=== PATIENT | female | born 1990 | race Caucasian/White ===

== ENCOUNTER 2016-06-02 16:04 | Emergency (ER) | payer BC, OTHER ==
[2016-06-02] MEDS ORDERED: HumuLIN R (REGULAR) INSULIN (NovoLIN R) **100U/ML** PER UNIT As Ordered ONE (17:07)
[2016-06-02 18:14] LABS: VENOUS BASE EXCESS 1.6 (-2.0-2.0); VENOUS O2 SATURATION 51.5 % (60.0-80.0); VENOUS PARTIAL PRESSURE CO2 52.8 mmHg (38.0-50.0); VENOUS PARTIAL PRESSURE O2 29.2 mmHg (30.0-50.0); VENOUS STANDARD HCO3 24.6 MEQ/L; VENOUS TOTAL CO2 30.1 MEQ/L (24.0-28.0)
[2016-06-02 18:21] LABS: BASO % 0.4 % (0.0-1.0); EOS # 0.1 K/mm3 (0.0-0.50); EOS % 1.2 % (0.0-3.0); LARGE UNSTAINED CELL # 0.1 K/mm3 (0.0-0.4); LARGE UNSTAINED CELL % 0.7 % (0.0-4.0); LYMPH # 1.7 K/mm3 (1.5-6.5); LYMPH % 16.2 % (24.0-44.0); MEAN CORPUSCULAR HEMOGLOBIN 29.9 pg (27.0-33.0); MEAN CORPUSCULAR HGB CONC 33.4 g/dl (32.0-36.5); MEAN CORPUSCULAR VOLUME 89.7 fl (80.0-96.0); MONO # 0.6 K/mm3 (0.0-0.8); MONO % 6.1 % (0.0-5.0); NEUTROPHILS # 7.5 K/mm3 (1.8-7.7); NEUTROPHILS % 75.5 % (36.0-66.0); PLATELET COUNT, AUTOMATED 236 k/mm3 (150-450); RED CELL DISTRIBUTION WIDTH 13.2 % (11.5-14.5)
[2016-06-02 18:37] LABS: ANION GAP 9 MEQ/L (8-16); BLOOD UREA NITROGEN 11 MG/DL (7-18); CALCIUM LEVEL 8.8 MG/DL (8.5-10.1); CARBON DIOXIDE LEVEL 30 MEQ/L (21-32); CHLORIDE LEVEL 101 MEQ/L (98-107); CREATININE FOR GFR 0.67 MG/DL (0.55-1.02); GLOMERULAR FILTRATION RATE > 60.0 (>60); GLUCOSE, FASTING 189 MG/DL (70-105); POTASSIUM SERUM 3.6 MEQ/L (3.5-5.1); SODIUM LEVEL 140 MEQ/L (136-145)
[2016-06-02] MEDS ORDERED: ACETAMINOPHEN 325 MG TAB As Ordered ONE (19:17)
--- NOTE | 2016-06-02 19:24 | EDDOCDS ---
Physician Documentation [facility] Name: Sherita Arreola Age: 25 yrs Sex: Female : 1990 Arrival Date: 06/02/2016 Time: 16:04 Bed I5 / M5 Private MD: NO PRIMARY PHYSICIAN, . Disposition: 06/02/16 19:06 Discharged to Home/Self Care. Impression: Elevated blood glucose level, Diabetes mellitus due to underlying condition. - Condition is Stable. - Discharge Instructions: Type 2 Diabetes Mellitus, Adult, Diabetes Mellitus and Food. - Medication Reconciliation, Work Release Form - 3 day form. - Follow up: [facility]; When: Call to arrange an appointment; Reason: Wound/Symptom Recheck, Recheck today's complaints, Continuance of care, To establish care. - Problem is an ongoing problem. - Symptoms have improved. Historical: - Allergies: No known drug Allergies; - Home Meds: 1. Metformin 2000 mg Oral once daily - PMHx: PCOS; Diabetes - NIDDM: controlled; - PSHx: none; - Social history: Smoking status: Patient states was never smoker of tobacco. No barriers to communication noted, The patient speaks fluent [place], Speaks appropriately for age. - Family history: Not pertinent. - : The pt / caregiver states he / she is not on anticoagulants. Home medication list is obtained from the patient. - Exposure Risk Screening:: None identified. NURSING HOME AIDE: 06/02 19:23 unknown nn1 Vital Signs: 16:05 BP 153 / 80; Pulse 107; Resp 16; Temp 96.0; Pulse Ox 98% ; Weight 108.86 kg / 240 lbs; elp Height 5 ft. 3 in. (160.02 cm); 19:21 BP 138 / 65; Pulse 104; Resp 18; Temp 102.7(O); Pulse Ox 97% on R/A; Pain 3/10; nn1 16:05 Body Mass Index 42.51 (108.86 kg, 160.02 cm) elp MDM: 16:19 Fingerstick Blood Sugar Ordered. EDMS 16:30 Urine Dip ordered. ar2 16:36 IV Saline Lock ordered. ar2 16:36 NS 0.9% 1000 ml IV at bolus once ordered. ar2 16:36 Insulin Regular Human 5 units IVP once ordered. ar2 16:36 Accucheck hourly ordered. ar2 16:38 CBC with Diff Ordered. EDMS 16:38 MED Profile Ordered. EDMS 16:38 Hemoglobin A1c Ordered. EDMS 16:38 Venous Blood Gas (large pea green tube on ice) Ordered. EDMS 16:38 Acetone Level Ordered. EDMS 16:42 Financial registration complete. gb 16:45 [facility] Payment Agreement was scanned into [employer] and attached to record. gb 18:32 Fingerstick Blood Sugar Ordered. EDMS 18:47 Fingerstick Blood Sugar Reviewed. cc10 18:47 CBC with Diff Reviewed. cc10 18:47 MED Profile Reviewed. cc10 18:47 Venous Blood Gas (large pea green tube on ice) Reviewed. cc10 18:47 Fingerstick Blood Sugar Reviewed. cc10 18:47 Acetone Level Reviewed. cc10 18:54 Fingerstick Blood Sugar Ordered. EDMS 19:01 Hemoglobin A1c Reviewed. cc10 19:01 Fingerstick Blood Sugar Reviewed. cc10 19:15 Acetaminophen Tablet 650 mg PO once ordered. cc10 Point of Care Testing: Blood Glucose: 16:11 Blood Glucose: 333 mg/dL; mcp 18:26 Blood Glucose: 167 mg/dL; k Urine Dip: 16:40 pH: 7; ; Specific [place]: 1.010; Ketones: Trace; Glucose: Positive; Protein: Negative; ck1 Leukocytes: Negative; Nitrite: Negative ; Blood: Negative; Bilirubin: Negative ; Urobilinogen: Normal Ranges: Administered Medications: 17:26 Drug: NS 0.9% 1000 ml Route: IV; Rate: bolus; Site: right forearm; [facility] 18:49 Follow up: IV Status: Completed infusion; IV Intake: 1000ml ms18 17:31 Drug: Insulin Regular Human 5 units [insulin regular human 100 unit/mL injection jmk solution (0.05 mL)] {Co-Signature: ms18 (Eda Cordero RN).} Route: IVP; Site: left forearm; 19:20 Drug: Acetaminophen 650 mg [acetaminophen 325 mg tablet (2 tabs)] Route: PO; nn1 Signatures: Dispatcher [employer] EDMS Ayesha Ellison, Reg Reg gb Annette Rich RN RN ck1 Phil Potts PA-C PA-C ar2 Micky Angulo PA-C PA-C cc10 Helder Castrejon,RN RN nn1 Jaden Álvarez RN, Mallory RN ms18 Eda Cordero RN ms18 The chart was reviewed and I authenticate all verbal orders and agree with the evaluation and treatment provided.Attachments: 16:45 [facility] Payment Agreement gb MTDD
--- NOTE | 2016-06-02 19:24 | EDDOCDS ---
Nurse's Notes [facility] Name: Sherita Arreola Age: 25 yrs Sex: Female : 1990 Arrival Date: 06/02/2016 Time: 16:04 Bed I5 / M5 Private MD: NO PRIMARY PHYSICIAN, . Diagnosis: Elevated blood glucose level;Diabetes mellitus due to underlying condition Presentation: 06/02 16:06 Presenting complaint: Patient states: BS in mid 300's for the past couple of days. ck1 Reports fatigue, dizziness, GUEVARA. Adult Sepsis Screening: The patient does not have new or worsening altered mentation. Patient's respiratory rate is less than 22. Systolic blood pressure is greater than 100. Patient has a qSOFA score of 0- Negative Sepsis Screen. Suicide/Homicide risk assessment- the patient denies having any suicidal and/or homicidal ideations and does not present with any other emotional, behavioral or mental health complaints. Status: Patient is not a radiology services manager or dependent. Transition of care: patient was not received from another setting of care. 16:06 Acuity: SPIKE Level 3 ck1 16:06 Method Of Arrival: Walkin/Carried/Asstd ck1 Triage Assessment: 16:08 General: Appears in no apparent distress, comfortable, Behavior is appropriate for age, ck1 cooperative. Pain: Location: head Pain currently is 4 out of 10 on a pain scale. HIV screening NA for this visit Offered previously. Neurological: Reports weakness. Respiratory: Respiratory effort is unlabored, Respiratory pattern is regular, symmetrical. GI: No deficits noted. Derm: Skin is intact, is healthy with good turgor, Skin is pink, warm & dry. HOOP EXPANDER: 19:23 unknown nn1 Historical: - Allergies: No known drug Allergies; - Home Meds: 1. Metformin 2000 mg Oral once daily - PMHx: PCOS; Diabetes - NIDDM: controlled; - PSHx: none; - Social history: Smoking status: Patient states was never smoker of tobacco. No barriers to communication noted, The patient speaks fluent Turkish, Speaks appropriately for age. - Family history: Not pertinent. - : The pt / caregiver states he / she is not on anticoagulants. Home medication list is obtained from the patient. - Exposure Risk Screening:: None identified. Screenin:21 Screening information is obtained from the patient. Fall risk: No risks identified. nn1 Assistance ADL's: requires no assistance with activities of daily living. Abuse/DV Screen: The patient / caregiver reports he/she is: not in a situation that causes fear, pain or injury. Nutritional screening: No deficits noted. Advance Directives: There is no active DNR order. home support is adequate. Assessment: 17:26 General: Appears in no apparent distress. Cardiovascular: Capillary refill < 3 seconds jmk Clubbing of nail beds is absent Heart tones S1 S2 absent. Respiratory: No deficits noted. Airway is patent Respiratory effort is even, unlabored, Respiratory pattern is regular, Breath sounds are clear bilaterally. GI: Abdomen is obese. 19:20 General: Appears in no apparent distress, comfortable, Behavior is appropriate for age, nn1 cooperative. Neurological: Level of Consciousness is awake, alert, obeys commands. Respiratory: Airway is patent Respiratory effort is even, unlabored, Respiratory pattern is regular. Derm: Skin is pink, warm & dry. 19:21 General: Patient medicated for fever prior to discharge.. Pain: Location: head Pain nn1 currently is 3 out of 10 on a pain scale. Vital Signs: 16:05 BP 153 / 80; Pulse 107; Resp 16; Temp 96.0; Pulse Ox 98% ; Weight 108.86 kg; Height 5 elp ft. 3 in. (160.02 cm); 19:21 BP 138 / 65; Pulse 104; Resp 18; Temp 102.7(O); Pulse Ox 97% on R/A; Pain 3/10; nn1 16:05 Body Mass Index 42.51 (108.86 kg, 160.02 cm) [facility] Vitals: 16:05 Log In Time: June 02, 2016 at 16:03. [facility] ED Course: 16:04 Patient visited by Milka Altamirano PCA. elp 16:04 Patient moved to Waiting elp 16:05 NO PRIMARY PHYSICIAN, . is Private Physician. elp 16:05 Patient visited by Milka Altamirano PCA. elp 16:05 Patient moved to Pre RCE elp 16:07 Triage Initiated ck1 16:08 Patient moved to Triage 1 ck1 16:25 [facility] ar2 16:25 Chantal Segovia MD is Attending Physician. ar2 16:27 Patient visited by Phil Potts PA-C. ar2 16:33 Patient moved to I5 / M5 ck1 16:40 Patient visited by Annette Rich RN. ck1 16:45 [facility] Payment Agreement was scanned into [employer] and attached to record. gb 17:30 Missed attempts: 20 gauge X 2. jmk 17:30 Inserted saline lock: 20 gauge in right forearm. jmk 17:35 Patient visited by Eda Cordero RN. ms18 17:55 PHCP role handed off by Phil Potts PA-C cc10 17:55 Micky Angulo PA-C is PHCP. cc10 18:04 Patient visited by Eda Cordero RN. ms18 18:05 Acetone Level Sent. ms18 18:05 Venous Blood Gas (large pea green tube on ice) Sent. ms18 18:05 Hemoglobin A1c Sent. ms18 18:05 MED Profile Sent. ms18 18:05 CBC with Diff Sent. ms18 18:05 Inserted saline lock: 20 gauge in left antecubital area. ms18 18:49 Patient visited by Eda Cordero RN. ms18 18:54 Fingerstick Blood Sugar Sent. ajs 19:06 [facility] is Referral Physician. cc10 19:22 The patient / caregiver is instructed regarding the plan of care and ED course. nn1 19:22 No procedures done that require assistance. nn1 Administered Medications: 17:26 Drug: NS 0.9% 1000 ml Route: IV; Rate: bolus; Site: right forearm; k 18:49 Follow up: IV Status: Completed infusion; IV Intake: 1000ml ms18 17:31 Drug: Insulin Regular Human 5 units [insulin regular human 100 unit/mL injection k solution (0.05 mL)] {Co-Signature: ms18 (Eda Cordero RN).} Route: IVP; Site: left forearm; 19:20 Drug: Acetaminophen 650 mg [acetaminophen 325 mg tablet (2 tabs)] Route: PO; nn1 Point of Care Testing: Blood Glucose: 16:11 Blood Glucose: 333 mg/dL; mcp 18:26 Blood Glucose: 167 mg/dL; jmk Urine Dip: 16:40 pH: 7; ; Specific [place]: 1.010; Ketones: Trace; Glucose: Positive; Protein: Negative; ck1 Leukocytes: Negative; Nitrite: Negative ; Blood: Negative; Bilirubin: Negative ; Urobilinogen: Normal Ranges: Intake: 18:49 IV: 1000.00ml; Total: 1000.00ml. ms18 Order Results: Lab Order: Fingerstick Blood Sugar; SPEC'M 06/02/16 16:10 Test: BEDSIDE GLUCOSE; Value: 333; Range: 70-105; Abnormal: Above high normal; Units: MG/DL; Status: F Test Note: ; Doctor Notified Lab Order: CBC with Diff; SPEC'M 06/02/16 17:59 Test: WHITE BLOOD COUNT; Value: 10.0; Range: 4.0-10.0; Units: K/mm3; Status: F Test: RED BLOOD COUNT; Value: 5.14; Range: 4.00-5.40; Units: M/mm3; Status: F Test: HEMOGLOBIN; Value: 15.4; Range: 12.0-16.0; Units: g/dl; Status: F Test: HEMATOCRIT; Value: 46.1; Range: 36.0-47.0; Units: %; Status: F Test: MEAN CORPUSCULAR VOLUME; Value: 89.7; Range: 80.0-96.0; Units: fl; Status: F Test: MEAN CORPUSCULAR HEMOGLOBIN; Value: 29.9; Range: 27.0-33.0; Units: pg; Status: F Test: MEAN CORPUSCULAR HGB CONC; Value: 33.4; Range: 32.0-36.5; Units: g/dl; Status: F Test: RED CELL DISTRIBUTION WIDTH; Value: 13.2; Range: 11.5-14.5; Units: %; Status: F Test: PLATELET COUNT, AUTOMATED; Value: 236; Range: 150-450; Units: k/mm3; Status: F Test: NEUTROPHILS %; Value: 75.5; Range: 36.0-66.0; Abnormal: Above high normal; Units: %; Status: F Test: LYMPH %; Value: 16.2; Range: 24.0-44.0; Abnormal: Below low normal; Units: %; Status: F Test: MONO %; Value: 6.1; Range: 0.0-5.0; Abnormal: Above high normal; Units: %; Status: F Test: EOS %; Value: 1.2; Range: 0.0-3.0; Units: %; Status: F Test: BASO %; Value: 0.4; Range: 0.0-1.0; Units: %; Status: F Test: LARGE UNSTAINED CELL %; Value: 0.7; Range: 0.0-4.0; Units: %; Status: F Test: NEUTROPHILS #; Value: 7.5; Range: 1.8-7.7; Units: K/mm3; Status: F Test: LYMPH #; Value: 1.7; Range: 1.5-6.5; Units: K/mm3; Status: F Test: MONO #; Value: 0.6; Range: 0.0-0.8; Units: K/mm3; Status: F Test: EOS #; Value: 0.1; Range: 0.0-0.50; Units: K/mm3; Status: F Test: BASO #; Value: 0.0; Range: 0.0-0.2; Units: K/mm3; Status: F Test: LARGE UNSTAINED CELL #; Value: 0.1; Range: 0.0-0.4; Units: K/mm3; Status: F Lab Order: [facility]; [facility] 06/02/16 17:59 Test: GLUCOSE, FASTING; Value: 189; Range: 70-105; Abnormal: Above high normal; Units: MG/DL; Status: F Test: BLOOD UREA NITROGEN; Value: 11; Range: 7-18; Units: MG/DL; Status: F Test: CREATININE FOR GFR; Value: 0.67; Range: 0.55-1.02; Units: MG/DL; Status: F Test: GLOMERULAR FILTRATION RATE; Value: > 60.0; Range: >60; Status: F Test: SODIUM LEVEL; Value: 140; Range: 136-145; Units: MEQ/L; Status: F Test: POTASSIUM SERUM; Value: 3.6; Range: 3.5-5.1; Units: MEQ/L; Status: F Test: CHLORIDE LEVEL; Value: 101; Range: 98-107; Units: MEQ/L; Status: F Test: CARBON DIOXIDE LEVEL; Value: 30; Range: 21-32; Units: MEQ/L; Status: F Test: ANION GAP; Value: 9; Range: 8-16; Units: MEQ/L; Status: F Test: CALCIUM LEVEL; Value: 8.8; Range: 8.5-10.1; Units: MG/DL; Status: F Test Note: ; Units are mL/min/1.73 m2 Chronic Kidney Disease Staging per NKF: Stage I & II GFR >=60 Normal to Mildly Decreased Stage III GFR 30-59 Moderately Decreased Stage IV GFR 15-29 Severely Decreased Stage V GFR <15 Very Little GFR Left ESRD GFR <15 on GAS LEAK INSPECTOR HELPER Lab Order: Hemoglobin A1c; [facility] 06/02/16 17:59 Test: HEMOGLOBIN A1c; Value: 10.6; Range: 4.5-6.2; Abnormal: Above high normal; Units: %; Status: F Test: ESTIMATED AVERAGE GLUCOSE; Value: 258; Range: 60-110; Abnormal: Above high normal; Units: MG/DL; Status: F Lab Order: Venous Blood Gas (large pea green tube on ice); [facility] 06/02/16 17:59 Test: VENOUS PH; Value: 7.349; Range: 7.330-7.430; Units: UNITS; Status: F Test: VENOUS PARTIAL PRESSURE CO2; Value: 52.8; Range: 38.0-50.0; Abnormal: Above high normal; Units: mmHg; Status: F Test: VENOUS PARTIAL PRESSURE O2; Value: 29.2; Range: 30.0-50.0; Abnormal: Below low normal; Units: mmHg; Status: F Test: VENOUS TOTAL CO2; Value: 30.1; Range: 24.0-28.0; Abnormal: Above high normal; Units: MEQ/L; Status: F Test: VENOUS HCO3; Value: 28.4; Range: 23.0-27.0; Abnormal: Above high normal; Units: MEQ/L; Status: F Test: VENOUS BASE EXCESS; Value: 1.6; Range: -2.0-2.0; Status: F Test: VENOUS STANDARD HCO3; Value: 24.6; Units: MEQ/L; Status: F Test: VENOUS O2 SATURATION; Value: 51.5; Range: 60.0-80.0; Abnormal: Below low normal; Units: %; Status: F Lab Order: Acetone Level; [facility] 06/02/16 17:59 Test: ACETONE/KETONE; Value: 1.10; Range: <2.81; Units: MG/DL; Status: F Lab Order: Fingerstick Blood Sugar; SPEC'M 06/02/16 18:24 Test: BEDSIDE GLUCOSE; Value: 167; Range: 70-105; Abnormal: Above high normal; Units: MG/DL; Status: F Lab Order: Fingerstick Blood Sugar; SPEC'M 06/02/16 18:47 Test: BEDSIDE GLUCOSE; Value: 177; Range: 70-105; Abnormal: Above high normal; Units: MG/DL; Status: F Outcome: 19:06 Discharge ordered by Provider. cc10 19:22 Discharge Assessment: Patient awake, alert and oriented x 3. No cognitive and/or nn1 functional deficits noted. Patient verbalized understanding of disposition instructions. patient administered narcotics - no. 19:22 The following High Risk Discharge criteria are identified: None. Discharged to home nn1 ambulatory. Condition: stable. Work note provided to patient. No special radiology studies were completed. Property :Personal belongings accompany Pt. 19:23 Patient left the ED. nn1 Signatures: Jaden Álvarez,RN RN Alida Coronado RN VASHTI mcp Ayesha Ellison, Reg Reg Annette BowenRN RN ck1 Phil Potts, PA-C PA-C ar2 Janis Luevano Erin, PIERCE C[employer] STAIN MIXER elp Micky Angulo, PA-C PA-C cc10 Eda Cordero RN RN ms18 Helder Castrejon RN RN nn1 Eda Cordero RN ms18 MTDD
--- NOTE | 2016-06-04 20:24 | EDDOCDS ---
Physician Documentation [facility] [place] Name: Sherita Arreola Age: 25 yrs Sex: Female : 1990 Arrival Date: 06/02/2016 Time: 16:04 Bed I5 / M5 Private MD: NO PRIMARY PHYSICIAN, . Disposition: 06/02/16 19:06 Discharged to Home/Self Care. Impression: Elevated blood glucose level, Diabetes mellitus due to underlying condition. - Condition is Stable. - Discharge Instructions: Type 2 Diabetes Mellitus, Adult, Diabetes Mellitus and Food. - Medication Reconciliation, Work Release Form - 3 day form. - Follow up: [facility]; When: Call to arrange an appointment; Reason: Wound/Symptom Recheck, Recheck today's complaints, Continuance of care, To establish care. - Problem is an ongoing problem. - Symptoms have improved. Historical: - Allergies: No known drug Allergies; - Home Meds: 1. Metformin 2000 mg Oral once daily - PMHx: PCOS; Diabetes - NIDDM: controlled; - PSHx: none; - Social history: Smoking status: Patient states was never smoker of tobacco. No barriers to communication noted, The patient speaks fluent Luxembourgish, Speaks appropriately for age. - Family history: Not pertinent. - : The pt / caregiver states he / she is not on anticoagulants. Home medication list is obtained from the patient. - Exposure Risk Screening:: None identified. ZIGZAG APPLIQUER: 06/02 19:23 unknown nn1 Vital Signs: 16:05 BP 153 / 80; Pulse 107; Resp 16; Temp 96.0; Pulse Ox 98% ; Weight 108.86 kg / 240 lbs; elp Height 5 ft. 3 in. (160.02 cm); 19:21 BP 138 / 65; Pulse 104; Resp 18; Temp 102.7(O); Pulse Ox 97% on R/A; Pain 3/10; nn1 16:05 Body Mass Index 42.51 (108.86 kg, 160.02 cm) elp MDM: 16:19 Fingerstick Blood Sugar Ordered. EDMS 16:30 Urine Dip ordered. ar2 16:36 IV Saline Lock ordered. ar2 16:36 NS 0.9% 1000 ml IV at bolus once ordered. ar2 16:36 Insulin Regular Human 5 units IVP once ordered. ar2 16:36 Accucheck hourly ordered. ar2 16:38 CBC with Diff Ordered. EDMS 16:38 MED Profile Ordered. EDMS 16:38 Hemoglobin A1c Ordered. EDMS 16:38 Venous Blood Gas (large pea green tube on ice) Ordered. EDMS 16:38 Acetone Level Ordered. EDMS 16:42 Financial registration complete. gb 16:45 [facility] Payment Agreement was scanned into [employer] and attached to record. gb 18:32 Fingerstick Blood Sugar Ordered. EDMS 18:47 Fingerstick Blood Sugar Reviewed. cc10 18:47 CBC with Diff Reviewed. cc10 18:47 MED Profile Reviewed. cc10 18:47 Venous Blood Gas (large pea green tube on ice) Reviewed. cc10 18:47 Fingerstick Blood Sugar Reviewed. cc10 18:47 Acetone Level Reviewed. cc10 18:54 Fingerstick Blood Sugar Ordered. EDMS 19:01 Hemoglobin A1c Reviewed. cc10 19:01 Fingerstick Blood Sugar Reviewed. cc10 19:15 Acetaminophen Tablet 650 mg PO once ordered. cc 06/03 18:33 T-Sheet-- Draft Copy was scanned into [employer] and attached to record. [facility] Point of Care Testing: Blood Glucose: 06/02 16:11 Blood Glucose: 333 mg/dL; mcp 18:26 Blood Glucose: 167 mg/dL; k Urine Dip: 16:40 pH: 7; ; Specific [place]: 1.010; Ketones: Trace; Glucose: Positive; Protein: Negative; ck1 Leukocytes: Negative; Nitrite: Negative ; Blood: Negative; Bilirubin: Negative ; Urobilinogen: Normal Ranges: Administered Medications: 17:26 Drug: NS 0.9% 1000 ml Route: IV; Rate: bolus; Site: right forearm; [facility] 18:49 Follow up: IV Status: Completed infusion; IV Intake: 1000ml ms18 17:31 Drug: Insulin Regular Human 5 units [insulin regular human 100 unit/mL injection k solution (0.05 mL)] {Co-Signature: ms18 (Eda Cordero RN).} Route: IVP; Site: left forearm; 19:20 Drug: Acetaminophen 650 mg [acetaminophen 325 mg tablet (2 tabs)] Route: PO; nn1 Signatures: Dispatcher [employer] EDMS Ayesha Ellison, Reg Reg Annette BowenRN RN ck1 Phil Potts PA-C PA-C ar2 Micky Angulo PA-C PA-C cc10 Helder CastrejonRN RN nn1 Darline Bañuelos Jean RN jmk Smith, Mallory RN ms18 Eda Cordero RN ms18 The chart was reviewed and I authenticate all verbal orders and agree with the evaluation and treatment provided.Attachments: 16:45 [facility] Payment Agreement gb 06/03 18:33 T-Sheet-- Draft Copy klr Chart Complete MTDD
--- NOTE | 2016-06-04 20:24 | EDDOCDS ---
Nurse's Notes [facility] Name: Sherita Arreola Age: 25 yrs Sex: Female : 1990 Arrival Date: 06/02/2016 Time: 16:04 Bed I5 / M5 Private MD: NO PRIMARY PHYSICIAN, . Diagnosis: Elevated blood glucose level;Diabetes mellitus due to underlying condition Presentation: 06/02 16:06 Presenting complaint: Patient states: BS in mid 300's for the past couple of days. ck1 Reports fatigue, dizziness, GUEVARA. Adult Sepsis Screening: The patient does not have new or worsening altered mentation. Patient's respiratory rate is less than 22. Systolic blood pressure is greater than 100. Patient has a qSOFA score of 0- Negative Sepsis Screen. Suicide/Homicide risk assessment- the patient denies having any suicidal and/or homicidal ideations and does not present with any other emotional, behavioral or mental health complaints. Status: Patient is not a special services coordinator or dependent. Transition of care: patient was not received from another setting of care. 16:06 Acuity: SPIKE Level 3 ck1 16:06 Method Of Arrival: Walkin/Carried/Asstd ck1 Triage Assessment: 16:08 General: Appears in no apparent distress, comfortable, Behavior is appropriate for age, ck1 cooperative. Pain: Location: head Pain currently is 4 out of 10 on a pain scale. HIV screening NA for this visit Offered previously. Neurological: Reports weakness. Respiratory: Respiratory effort is unlabored, Respiratory pattern is regular, symmetrical. GI: No deficits noted. Derm: Skin is intact, is healthy with good turgor, Skin is pink, warm & dry. OR FIRST ASSIST REGISTERED NURSE: 19:23 unknown nn1 Historical: - Allergies: No known drug Allergies; - Home Meds: 1. Metformin 2000 mg Oral once daily - PMHx: PCOS; Diabetes - NIDDM: controlled; - PSHx: none; - Social history: Smoking status: Patient states was never smoker of tobacco. No barriers to communication noted, The patient speaks fluent Taiwanese, Speaks appropriately for age. - Family history: Not pertinent. - : The pt / caregiver states he / she is not on anticoagulants. Home medication list is obtained from the patient. - Exposure Risk Screening:: None identified. Screenin:21 Screening information is obtained from the patient. Fall risk: No risks identified. nn1 Assistance ADL's: requires no assistance with activities of daily living. Abuse/DV Screen: The patient / caregiver reports he/she is: not in a situation that causes fear, pain or injury. Nutritional screening: No deficits noted. Advance Directives: There is no active DNR order. home support is adequate. Assessment: 17:26 General: Appears in no apparent distress. Cardiovascular: Capillary refill < 3 seconds jmk Clubbing of nail beds is absent Heart tones S1 S2 absent. Respiratory: No deficits noted. Airway is patent Respiratory effort is even, unlabored, Respiratory pattern is regular, Breath sounds are clear bilaterally. GI: Abdomen is obese. 19:20 General: Appears in no apparent distress, comfortable, Behavior is appropriate for age, nn1 cooperative. Neurological: Level of Consciousness is awake, alert, obeys commands. Respiratory: Airway is patent Respiratory effort is even, unlabored, Respiratory pattern is regular. Derm: Skin is pink, warm & dry. 19:21 General: Patient medicated for fever prior to discharge.. Pain: Location: head Pain nn1 currently is 3 out of 10 on a pain scale. Vital Signs: 16:05 BP 153 / 80; Pulse 107; Resp 16; Temp 96.0; Pulse Ox 98% ; Weight 108.86 kg; Height 5 elp ft. 3 in. (160.02 cm); 19:21 BP 138 / 65; Pulse 104; Resp 18; Temp 102.7(O); Pulse Ox 97% on R/A; Pain 3/10; nn1 16:05 Body Mass Index 42.51 (108.86 kg, 160.02 cm) [facility] Vitals: 16:05 Log In Time: June 02, 2016 at 16:03. [facility] ED Course: 16:04 Patient visited by Milka Altamirano PCA. elp 16:04 Patient moved to Waiting elp 16:05 NO PRIMARY PHYSICIAN, . is Private Physician. elp 16:05 Patient visited by Milka Altamirano PCA. elp 16:05 Patient moved to Pre RCE elp 16:07 Triage Initiated ck1 16:08 Patient moved to Triage 1 ck1 16:25 [facility] ar2 16:25 Chantal Segovia MD is Attending Physician. ar2 16:27 Patient visited by Phil Potts PA-C. ar2 16:33 Patient moved to I5 / M5 ck1 16:40 Patient visited by Annette Rihc RN. ck1 16:45 [facility] Payment Agreement was scanned into webme and attached to record. gb 17:30 Missed attempts: 20 gauge X 2. jmk 17:30 Inserted saline lock: 20 gauge in right forearm. jmk 17:35 Patient visited by Eda Cordero RN. ms18 17:55 PHCP role handed off by Phil Potts PA-C cc10 17:55 Micky Angulo PA-C is PHCP. cc10 18:04 Patient visited by Eda Cordero RN. ms18 18:05 Acetone Level Sent. ms18 18:05 Venous Blood Gas (large pea green tube on ice) Sent. ms18 18:05 Hemoglobin A1c Sent. ms18 18:05 MED Profile Sent. ms18 18:05 CBC with Diff Sent. ms18 18:05 Inserted saline lock: 20 gauge in left antecubital area. ms18 18:49 Patient visited by Eda Cordero RN. ms18 18:54 Fingerstick Blood Sugar Sent. ajs 19:06 [facility] is Referral Physician. cc10 19:22 The patient / caregiver is instructed regarding the plan of care and ED course. nn1 19:22 No procedures done that require assistance. nn1 06/03 18:33 T-Sheet-- Draft Copy was scanned into webme and attached to record. klr Administered Medications: 06/02 17:26 Drug: NS 0.9% 1000 ml Route: IV; Rate: bolus; Site: right forearm; jmk 18:49 Follow up: IV Status: Completed infusion; IV Intake: 1000ml ms18 17:31 Drug: Insulin Regular Human 5 units [insulin regular human 100 unit/mL injection raheem solution (0.05 mL)] {Co-Signature: ms18 (Eda Cordero RN).} Route: IVP; Site: left forearm; 19:20 Drug: Acetaminophen 650 mg [acetaminophen 325 mg tablet (2 tabs)] Route: PO; nn1 Point of Care Testing: Blood Glucose: 16:11 Blood Glucose: 333 mg/dL; mcp 18:26 Blood Glucose: 167 mg/dL; jmk Urine Dip: 16:40 pH: 7; ; Specific [place]: 1.010; Ketones: Trace; Glucose: Positive; Protein: Negative; ck1 Leukocytes: Negative; Nitrite: Negative ; Blood: Negative; Bilirubin: Negative ; Urobilinogen: Normal Ranges: Intake: 18:49 IV: 1000.00ml; Total: 1000.00ml. ms18 Order Results: Lab Order: Fingerstick Blood Sugar; SPEC'M 06/02/16 16:10 Test: BEDSIDE GLUCOSE; Value: 333; Range: 70-105; Abnormal: Above high normal; Units: MG/DL; Status: F Test Note: ; Doctor Notified Lab Order: CBC with Diff; SPEC'M 06/02/16 17:59 Test: WHITE BLOOD COUNT; Value: 10.0; Range: 4.0-10.0; Units: K/mm3; Status: F Test: RED BLOOD COUNT; Value: 5.14; Range: 4.00-5.40; Units: M/mm3; Status: F Test: HEMOGLOBIN; Value: 15.4; Range: 12.0-16.0; Units: g/dl; Status: F Test: HEMATOCRIT; Value: 46.1; Range: 36.0-47.0; Units: %; Status: F Test: MEAN CORPUSCULAR VOLUME; Value: 89.7; Range: 80.0-96.0; Units: fl; Status: F Test: MEAN CORPUSCULAR HEMOGLOBIN; Value: 29.9; Range: 27.0-33.0; Units: pg; Status: F Test: MEAN CORPUSCULAR HGB CONC; Value: 33.4; Range: 32.0-36.5; Units: g/dl; Status: F Test: RED CELL DISTRIBUTION WIDTH; Value: 13.2; Range: 11.5-14.5; Units: %; Status: F Test: PLATELET COUNT, AUTOMATED; Value: 236; Range: 150-450; Units: k/mm3; Status: F Test: NEUTROPHILS %; Value: 75.5; Range: 36.0-66.0; Abnormal: Above high normal; Units: %; Status: F Test: LYMPH %; Value: 16.2; Range: 24.0-44.0; Abnormal: Below low normal; Units: %; Status: F Test: MONO %; Value: 6.1; Range: 0.0-5.0; Abnormal: Above high normal; Units: %; Status: F Test: EOS %; Value: 1.2; Range: 0.0-3.0; Units: %; Status: F Test: BASO %; Value: 0.4; Range: 0.0-1.0; Units: %; Status: F Test: LARGE UNSTAINED CELL %; Value: 0.7; Range: 0.0-4.0; Units: %; Status: F Test: NEUTROPHILS #; Value: 7.5; Range: 1.8-7.7; Units: K/mm3; Status: F Test: LYMPH #; Value: 1.7; Range: 1.5-6.5; Units: K/mm3; Status: F Test: MONO #; Value: 0.6; Range: 0.0-0.8; Units: K/mm3; Status: F Test: EOS #; Value: 0.1; Range: 0.0-0.50; Units: K/mm3; Status: F Test: BASO #; Value: 0.0; Range: 0.0-0.2; Units: K/mm3; Status: F Test: LARGE UNSTAINED CELL #; Value: 0.1; Range: 0.0-0.4; Units: K/mm3; Status: F Lab Order: MED Profile; SPEC'M 06/02/16 17:59 Test: GLUCOSE, FASTING; Value: 189; Range: 70-105; Abnormal: Above high normal; Units: MG/DL; Status: F Test: BLOOD UREA NITROGEN; Value: 11; Range: 7-18; Units: MG/DL; Status: F Test: CREATININE FOR GFR; Value: 0.67; Range: 0.55-1.02; Units: MG/DL; Status: F Test: GLOMERULAR FILTRATION RATE; Value: > 60.0; Range: >60; Status: F Test: SODIUM LEVEL; Value: 140; Range: 136-145; Units: MEQ/L; Status: F Test: POTASSIUM SERUM; Value: 3.6; Range: 3.5-5.1; Units: MEQ/L; Status: F Test: CHLORIDE LEVEL; Value: 101; Range: 98-107; Units: MEQ/L; Status: F Test: CARBON DIOXIDE LEVEL; Value: 30; Range: 21-32; Units: MEQ/L; Status: F Test: ANION GAP; Value: 9; Range: 8-16; Units: MEQ/L; Status: F Test: CALCIUM LEVEL; Value: 8.8; Range: 8.5-10.1; Units: MG/DL; Status: F Test Note: ; Units are mL/min/1.73 m2 Chronic Kidney Disease Staging per NKF: Stage I & II GFR >=60 Normal to Mildly Decreased Stage III GFR 30-59 Moderately Decreased Stage IV GFR 15-29 Severely Decreased Stage V GFR <15 Very Little GFR Left ESRD GFR <15 on [employer]PD[employer] TECHNICIAN Lab Order: Hemoglobin A1c; [facility]' 06/02/16 17:59 Test: HEMOGLOBIN A1c; Value: 10.6; Range: 4.5-6.2; Abnormal: Above high normal; Units: %; Status: F Test: ESTIMATED AVERAGE GLUCOSE; Value: 258; Range: 60-110; Abnormal: Above high normal; Units: MG/DL; Status: F Lab Order: Venous Blood Gas (large pea green tube on ice); SPEC' 06/02/16 17:59 Test: VENOUS PH; Value: 7.349; Range: 7.330-7.430; Units: UNITS; Status: F Test: VENOUS PARTIAL PRESSURE CO2; Value: 52.8; Range: 38.0-50.0; Abnormal: Above high normal; Units: mmHg; Status: F Test: VENOUS PARTIAL PRESSURE O2; Value: 29.2; Range: 30.0-50.0; Abnormal: Below low normal; Units: mmHg; Status: F Test: VENOUS TOTAL CO2; Value: 30.1; Range: 24.0-28.0; Abnormal: Above high normal; Units: MEQ/L; Status: F Test: VENOUS HCO3; Value: 28.4; Range: 23.0-27.0; Abnormal: Above high normal; Units: MEQ/L; Status: F Test: VENOUS BASE EXCESS; Value: 1.6; Range: -2.0-2.0; Status: F Test: VENOUS STANDARD HCO3; Value: 24.6; Units: MEQ/L; Status: F Test: VENOUS O2 SATURATION; Value: 51.5; Range: 60.0-80.0; Abnormal: Below low normal; Units: %; Status: F Lab Order: Acetone Level; SPEC'M 06/02/16 17:59 Test: ACETONE/KETONE; Value: 1.10; Range: <2.81; Units: MG/DL; Status: F Lab Order: Fingerstick Blood Sugar; SPEC'M 06/02/16 18:24 Test: BEDSIDE GLUCOSE; Value: 167; Range: 70-105; Abnormal: Above high normal; Units: MG/DL; Status: F Lab Order: Fingerstick Blood Sugar; SPEC'M 06/02/16 18:47 Test: BEDSIDE GLUCOSE; Value: 177; Range: 70-105; Abnormal: Above high normal; Units: MG/DL; Status: F Outcome: 19:06 Discharge ordered by Provider. cc10 19:22 Discharge Assessment: Patient awake, alert and oriented x 3. No cognitive and/or nn1 functional deficits noted. Patient verbalized understanding of disposition instructions. patient administered narcotics - no. 19:22 The following High Risk Discharge criteria are identified: None. Discharged to home nn1 ambulatory. Condition: stable. Work note provided to patient. No special radiology studies were completed. Property :Personal belongings accompany Pt. 19:23 Patient left the ED. nn1 Signatures: Jaden ÁlvarezRN Alida Harley RN RN mcp Barnhardt, Gloria, Jed Reg Annette Bowen RN RN ck1 Phil Potts, PASheC PASheC ar2 Janis Luevano Erin, PIERCE WAFER FABRICATOR [employer] Micky Angulo PASheC PA-C cc10 Eda Cordero RN RN ms18 Helder Castrejon RN RN nn1 Darline Bañuelos RN ms18 Chart Complete MTDD
--- NOTE | 2016-06-04 20:24 | EDDOCDS ---
Physician Documentation [facility] Name: Sherita Arreola Age: 25 yrs Sex: Female : 1990 Arrival Date: 06/02/2016 Time: 16:04 Bed I5 / M5 Private MD: NO PRIMARY PHYSICIAN, . Disposition: 06/02/16 19:06 Discharged to Home/Self Care. Impression: Elevated blood glucose level, Diabetes mellitus due to underlying condition. - Condition is Stable. - Discharge Instructions: Type 2 Diabetes Mellitus, Adult, Diabetes Mellitus and Food. - Medication Reconciliation, Work Release Form - 3 day form. - [facility] up: [facility]; When: Call to arrange an appointment; Reason: Wound/Symptom Recheck, Recheck today's complaints, Continuance of care, To establish care. - Problem is an ongoing problem. - Symptoms have improved. Historical: - Allergies: No known drug Allergies; - Home Meds: 1. Metformin 2000 mg Oral once daily - PMHx: PCOS; Diabetes - NIDDM: controlled; - PSHx: none; - Social history: Smoking status: Patient states was never smoker of tobacco. No barriers to communication noted, The patient speaks fluent Slovak, Speaks appropriately for age. - Family history: Not pertinent. - : The pt / caregiver states he / she is not on anticoagulants. Home medication list is obtained from the patient. - Exposure Risk Screening:: None identified. MEDIA LIAISON OFFICER: 06/02 19:23 unknown nn1 Vital Signs: 16:05 BP 153 / 80; Pulse 107; Resp 16; Temp 96.0; Pulse Ox 98% ; Weight 108.86 kg / 240 lbs; elp Height 5 ft. 3 in. (160.02 cm); 19:21 BP 138 / 65; Pulse 104; Resp 18; Temp 102.7(O); Pulse Ox 97% on R/A; Pain 3/10; nn1 16:05 Body Mass Index 42.51 (108.86 kg, 160.02 cm) elp MDM: 16:19 Fingerstick Blood Sugar Ordered. EDMS 16:30 Urine Dip ordered. ar2 16:36 IV Saline Lock ordered. ar2 16:36 NS 0.9% 1000 ml IV at bolus once ordered. ar2 16:36 Insulin Regular Human 5 units IVP once ordered. ar2 16:36 Accucheck hourly ordered. ar2 16:38 CBC with Diff Ordered. EDMS 16:38 MED Profile Ordered. EDMS 16:38 Hemoglobin A1c Ordered. EDMS 16:38 Venous Blood Gas (large pea green tube on ice) Ordered. EDMS 16:38 Acetone Level Ordered. EDMS 16:42 Financial registration complete. gb 16:45 [facility] Payment Agreement was scanned into [employer] and attached to record. gb 18:32 Fingerstick Blood Sugar Ordered. EDMS 18:47 Fingerstick Blood Sugar Reviewed. cc10 18:47 CBC with Diff Reviewed. cc10 18:47 MED Profile Reviewed. cc10 18:47 Venous Blood Gas (large pea green tube on ice) Reviewed. cc10 18:47 Fingerstick Blood Sugar Reviewed. cc10 18:47 Acetone Level Reviewed. cc10 18:54 Fingerstick Blood Sugar Ordered. EDMS 19:01 Hemoglobin A1c Reviewed. cc10 19:01 Fingerstick Blood Sugar Reviewed. cc10 19:15 Acetaminophen Tablet 650 mg PO once ordered. cc 06/03 18:33 T-Sheet-- Draft Copy was scanned into [employer] and attached to record. [facility] Point of Care Testing: Blood Glucose: 06/02 16:11 Blood Glucose: 333 mg/dL; mcp 18:26 Blood Glucose: 167 mg/dL; k Urine Dip: 16:40 pH: 7; ; Specific [place]: 1.010; Ketones: Trace; Glucose: Positive; Protein: Negative; ck1 Leukocytes: Negative; Nitrite: Negative ; Blood: Negative; Bilirubin: Negative ; Urobilinogen: Normal Ranges: Administered Medications: 17:26 Drug: NS 0.9% 1000 ml Route: IV; Rate: bolus; Site: right forearm; [facility] 18:49 Follow up: IV Status: Completed infusion; IV Intake: 1000ml ms18 17:31 Drug: Insulin Regular Human 5 units [insulin regular human 100 unit/mL injection k solution (0.05 mL)] {Co-Signature: ms18 (Eda Cordero RN).} Route: IVP; Site: left forearm; 19:20 Drug: Acetaminophen 650 mg [acetaminophen 325 mg tablet (2 tabs)] Route: PO; nn1 Signatures: Dispatcher [employer] EDMS Ayesha Ellison, Reg Reg Annette BowenRN RN ck1 Phil Potts PA-C PA-C ar2 Micky Angulo PA-C PA-C cc10 Helder CastrejonRN RN nn1 Darline Bañuelos Jean RN jmk Smith, Mallory RN ms18 Eda Cordero RN ms18 The chart was reviewed and I authenticate all verbal orders and agree with the evaluation and treatment provided.Attachments: 16:45 [facility] Payment Agreement gb 06/03 18:33 T-Sheet-- Draft Copy klr Chart Complete MTDD
== END 2016-06-02 19:23 | disposition home or self-care (01) ==
LOC: M ED 16:04
DX: E11.65 Type 2 diabetes mellitus with hyperglycemia (principal); E28.2 Polycystic ovarian syndrome; Z79.84 Long term (current) use of oral hypoglycemic drugs

== ENCOUNTER 2016-06-17 15:13 | Emergency (ER) | payer BC ==
[~2016-06-17] VITALS: Ht 160 cm; Wt 108.9 kg
[2016-06-17] MEDS ORDERED: METF500T4 (15:35)
[2016-06-17] MEDS: NS 1,000 ML IV ONE (17:00)
[2016-06-17 17:44] LABS: ALBUMIN 3.9 GM/DL (3.2-5.2); ALBUMIN/GLOBULIN RATIO 0.98 (1.00-1.93); ALKALINE PHOSPHATASE 65 U/L (45-117); ALT/SGPT 60 U/L (12-78); ANION GAP 12 MEQ/L (8-16); AST/SGOT 18 U/L (15-37); BILIRUBIN,TOTAL 0.5 MG/DL (0.2-1.0); BLOOD UREA NITROGEN 13 MG/DL (7-18); CALCIUM LEVEL 9.3 MG/DL (8.5-10.1); CARBON DIOXIDE LEVEL 24 MEQ/L (21-32); CHLORIDE LEVEL 104 MEQ/L (98-107); CREATININE FOR GFR 0.58 MG/DL (0.55-1.02); GLOMERULAR FILTRATION RATE > 60.0 (>60); GLUCOSE, FASTING 308 MG/DL (70-105); SODIUM LEVEL 140 MEQ/L (136-145); TOTAL PROTEIN 7.9 GM/DL (6.4-8.2)
[2016-06-17 17:47] LABS: BASO % 0.2 % (0.0-1.0); EOS # 0.1 K/mm3 (0.0-0.50); EOS % 1.4 % (0.0-3.0); LARGE UNSTAINED CELL # 0.2 K/mm3 (0.0-0.4); LARGE UNSTAINED CELL % 1.8 % (0.0-4.0); LYMPH # 2.7 K/mm3 (1.5-6.5); LYMPH % 27.6 % (24.0-44.0); MEAN CORPUSCULAR HEMOGLOBIN 29.9 pg (27.0-33.0); MEAN CORPUSCULAR HGB CONC 34.2 g/dl (32.0-36.5); MEAN CORPUSCULAR VOLUME 87.4 fl (80.0-96.0); MONO # 0.3 K/mm3 (0.0-0.8); MONO % 2.8 % (0.0-5.0); NEUTROPHILS # 6.6 K/mm3 (1.8-7.7); NEUTROPHILS % 66.2 % (36.0-66.0); PLATELET COUNT, AUTOMATED 281 k/mm3 (150-450)
[2016-06-17 17:47] LABS: CONTROL LINE UCG INT CTR LINE PRESENT
[2016-06-17 19:46] VITALS: BP 125/75
== END 2016-06-17 19:53 | disposition home or self-care (01) ==
LOC: M ED 16:28
DX: E11.65 Type 2 diabetes mellitus with hyperglycemia (principal); Z79.84 Long term (current) use of oral hypoglycemic drugs; E28.2 Polycystic ovarian syndrome

== ENCOUNTER → 2016-06-28 | Outpatient (REF) | payer BC ==
[~2016-06-28] MED LIST: METF500T4
[2016-06-28 12:06] LABS: BASO % 0.3 % (0.0-1.0); EOS # 0.2 K/mm3 (0.0-0.50); EOS % 2.1 % (0.0-3.0); LARGE UNSTAINED CELL # 0.1 K/mm3 (0.0-0.4); LARGE UNSTAINED CELL % 1.1 % (0.0-4.0); LYMPH # 2.3 K/mm3 (1.5-6.5); LYMPH % 22.9 % (24.0-44.0); MEAN CORPUSCULAR HEMOGLOBIN 30.5 pg (27.0-33.0); MEAN CORPUSCULAR HGB CONC 34.1 g/dl (32.0-36.5); MEAN CORPUSCULAR VOLUME 89.5 fl (80.0-96.0); MONO # 0.4 K/mm3 (0.0-0.8); MONO % 4.6 % (0.0-5.0); NEUTROPHILS # 6.5 K/mm3 (1.8-7.7); NEUTROPHILS % 68.9 % (36.0-66.0); PLATELET COUNT, AUTOMATED 239 k/mm3 (150-450); RED CELL DISTRIBUTION WIDTH 13.3 % (11.5-14.5); WHITE BLOOD COUNT 9.4 K/mm3 (4.0-10.0)
[2016-06-28 12:32] LABS: ALBUMIN 3.5 GM/DL (3.2-5.2); ALBUMIN/GLOBULIN RATIO 1.03 (1.00-1.93); ALKALINE PHOSPHATASE 54 U/L (45-117); ALT/SGPT 57 U/L (12-78); ANION GAP 9 MEQ/L (8-16); AST/SGOT 27 U/L (15-37); BILIRUBIN,TOTAL 0.7 MG/DL (0.2-1.0); BLOOD UREA NITROGEN 12 MG/DL (7-18); CALCIUM LEVEL 8.9 MG/DL (8.5-10.1); CARBON DIOXIDE LEVEL 29 MEQ/L (21-32); CHLORIDE LEVEL 100 MEQ/L (98-107); CHOLESTEROL LEVEL 172 MG/DL (<200); CREATININE FOR GFR 0.61 MG/DL (0.55-1.02); GLOMERULAR FILTRATION RATE > 60.0 (>60); GLUCOSE, FASTING 225 MG/DL (70-105); POTASSIUM SERUM 4.3 MEQ/L (3.5-5.1); SODIUM LEVEL 138 MEQ/L (136-145); TOTAL PROTEIN 6.9 GM/DL (6.4-8.2); TRIGLYCERIDES LEVEL 193 MG/DL (<150)
== END ==
LOC: M SFHCPLAZ 09:58
PROVIDERS: ATTEND Nurse Practitioner Family
DX: Z00.00 Encounter for general adult medical examination without abnormal findings (principal); E11.9 Type 2 diabetes mellitus without complications; Z13.220 Encounter for screening for lipoid disorders

== ENCOUNTER 2017-04-18 13:23 | Emergency (ER) | payer OTHER, BC, SELFPAY ==
[2017-04-18 13:48] LABS: BEDSIDE GLUCOSE 318 MG/DL (70-105)
[2017-04-18] MEDS: NS 1,000 ML IV (14:00)
[2017-04-18 14:25] LABS: BASO % 0.5 % (0.0-1.0); EOS # 0.1 10^3/uL (0.0-0.50); EOS % 1.5 % (0.0-3.0); HEMATOCRIT 44.7 % (36.0-47.0); HEMOGLOBIN 15.6 g/dl (12.0-16.0); IMMATURE GRANULOCYTE % 0.2 % (0-0); LYMPH # 2.2 10^3/uL (1.5-6.5); LYMPH % 26.2 % (24.0-44.0); MEAN CORPUSCULAR HEMOGLOBIN 29.9 pg (27.0-33.0); MEAN CORPUSCULAR HGB CONC 34.9 g/dl (32.0-36.5); MEAN CORPUSCULAR VOLUME 85.8 fl (80.0-96.0); MONO # 0.5 10^3/uL (0.0-0.8); MONO % 5.7 % (0.0-5.0); NEUTROPHILS # 5.4 10^3/uL (1.8-7.7); NEUTROPHILS % 65.9 % (36.0-66.0); PLATELET COUNT, AUTOMATED 257 10^3/uL (150-450); RED BLOOD COUNT 5.21 10^6/uL (4.00-5.40); RED CELL DISTRIBUTION WIDTH 12.3 % (11.5-14.5); WHITE BLOOD COUNT 8.2 10^3/uL (4.0-10.0)
[2017-04-18 14:32] LABS: CONTROL LINE UCG INT CTR LINE PRESENT; URINE PREG TEST NEGATIVE (NEGATIVE)
[2017-04-18 14:34] LABS: KETONE, URINE AUTO RFX 1+ mg/dL (NEGATIVE); LEUKOCYTE ESTERASE UR AUTO RFX NEGATIVE (NEGATIVE); NITRITE, URINE AUTO RFX NEGATIVE (NEGATIVE); RBC, URINE AUTO RFX 1 /HPF (0-3); SPECIFIC GRAVITY UR AUTO RFX 1.037 (1.002-1.035); SQUAM EPITHELIAL CELL UR AURFX 1 /HPF (0-6); WBC, URINE AUTO RFX 1 /HPF (0-3)
[2017-04-18 15:04] LABS: ESTIMATED AVERAGE GLUCOSE 269 MG/DL (60-110)
[2017-04-18 15:24] LABS: ALBUMIN 3.3 GM/DL (3.2-5.2); ALBUMIN/GLOBULIN RATIO 1.03 (1.00-1.93); ALKALINE PHOSPHATASE 57 U/L (45-117); ALT/SGPT 73 U/L (12-78); ANION GAP 8 MEQ/L (8-16); AST/SGOT 35 U/L (7-37); BILIRUBIN,DIRECT 0.2 MG/DL (0.0-0.2); BILIRUBIN,TOTAL 0.6 MG/DL (0.2-1.0); BLOOD UREA NITROGEN 10 MG/DL (7-18); CALCIUM LEVEL 7.9 MG/DL (8.5-10.1); CARBON DIOXIDE LEVEL 26 MEQ/L (21-32); CHLORIDE LEVEL 104 MEQ/L (98-107); CREATININE FOR GFR 0.55 MG/DL (0.55-1.02); GLOMERULAR FILTRATION RATE > 60.0 (>60); GLUCOSE, FASTING 289 MG/DL (70-105); LIPASE 85 U/L (73-393); POTASSIUM SERUM 3.8 MEQ/L (3.5-5.1); SODIUM LEVEL 138 MEQ/L (136-145); TOTAL PROTEIN 6.5 GM/DL (6.4-8.2)
[2017-04-18 16:24] LABS: BEDSIDE GLUCOSE 233 MG/DL (70-105)
== END 2017-04-18 16:19 | disposition home or self-care (01) ==
LOC: M ED 13:23
DX: R05 Cough (principal)
CPT/HCPCS: 83690

== ENCOUNTER → 2017-05-10 | Outpatient (REF) | payer OTHER ==
[2017-05-10 20:15] LABS: INFLUENZA A AMPLIFICATION NEGATIVE (NEGATIVE); INFLUENZA B AMPLIFICATION NEGATIVE (NEGATIVE); RSV AMPLIFICATION NEGATIVE (NEGATIVE)
== END ==
LOC: M LAB REF 19:17
DX: J11.1 Influenza due to unidentified influenza virus with other respiratory manifestations (principal)

== ENCOUNTER 2017-05-17 00:37 | Emergency (ER) | payer OTHER | END 2017-05-17 03:27 | disposition left against medical advice (07) | LOC: M ED 00:37 | DX: Z53.29 Procedure and treatment not carried out because of patient's decision for other reasons (principal) ==